=== PATIENT | male | born 1970 | race Caucasian/White ===

== ENCOUNTER 2017-11-19 18:07 | Emergency (ER) | payer OTHER ==
[~2017-11-19] VITALS: Ht 175.3 cm; Wt 84.0 kg
[~2017-11-19 18:07] MED LIST: DIAZ2 PO; HYDR-3535 PO; OMEP20CA5 PO
[2017-11-19 18:24] VITALS: BP 141/84; PULSE 87; RESP 18; TEMP 98.6; O2SAT 99
[2017-11-19 18:56] LABS: BLOOD, URINE LARGE (NEG); GLUCOSE,URINE NEG (NEG); KETONE, URINE NEG (NEG); NITRITE,URINE NEG (NEG); PH, URINE 5.5 (5.0-8.5); URINE LEUKOCYTE ESTERASE NEG (NEG)
[2017-11-19] MEDS ORDERED: SODIUM CHLOR 0.9% 1000 ML INJ 1,000 ML IV SCH (18:57)
[2017-11-19 18:58] LABS: URINE COLOR BROWN (YELLW/STRAW)
[2017-11-19 18:59] LABS: BILIRUBIN, URINE NEG (NEG)
[2017-11-19 19:00] VITALS: BP 132/85; PULSE 85; RESP 18; O2SAT 98
[2017-11-19] MEDS ORDERED: SODIUM CHLORIDE 0.9% FLUSH 10 ML FLUSH IV FLUSH PRN (19:00)
[2017-11-19] MEDS ORDERED: HYDROmorphone HCL PF 1 MG/ML VIAL IVS ONE (19:00)
[2017-11-19] MEDS ORDERED: ONDANSETRON ODT 4 MG TAB PO ONE (19:00)
[2017-11-19] MEDS ORDERED: KETOROLAC TROMETHAMINE 30 MG/ML (IVP) VIAL IVP ONE (19:00)
--- NOTE | 2017-11-19 19:04 | PD ---
HPI Chief Complaint: Flank/Kidney Pain Time Seen by Provider: 18:53 Travel History International Travel<30 days: No Contact w/Intl Traveler<30days: No Traveled to known affect area: No History of Present Illness HPI 47-year-old male complains of left flank pain. Patient states that the pain started last night. Patient states the pain is severe sharp pain started left flank area with radiation to left mid abdomen. Patient denies any fever chills. Patient denies any dysuria or frequency. Patient has history kidney stone in the past. On a scale of 1-10 the pain is a 9. PFSH Past Medical History Cancer: No Cardiovascular Problems: No Diabetes: No Diminished Hearing: No Endocrine: No Gastrointestinal Disorders: Yes (REFLUX) Genitourinary: Yes (KIDNEY STONES) Hepatitis: No Hiatal Hernia: No Immune Disorder: No Kidney Stones: Yes (HX) Musculoskeletal: Yes ("herniated and ruptured back discs and bulging discs in neck") Neurologic: Yes (R LEG TINGLE NUMBNESS) Respiratory: No Thyroid Disease: No Influenza Vaccination: Yes Past Surgical History AICD: No Body Medical Devices: NONE Joint Replacement: No Pacemaker: No Social History Alcohol Use: Yes (STATES OCCASIONAL USE) Tobacco Use: Yes (1 PPD) Substance Use: No Allergies-Medications (Allergen,Severity, Reaction): Coded Allergies: morphine (Unverified Adverse Reaction, Severe, VOMITS, 11/19/17) Reported Meds & Prescriptions Reported Meds & Active Scripts Active Review of Systems General / Constitutional: No: Fever Eyes: No: Visual changes HENT: No: Headaches Cardiovascular: No: Chest Pain or Discomfort Respiratory: No: Shortness of Breath Gastrointestinal: Positive: Abdominal Pain Genitourinary: No: Dysuria Musculoskeletal: No: Pain Skin: No Rash Neurologic: No: Weakness Psychiatric: No: Depression Endocrine: No: Polydipsia Hematologic/Lymphatic: No: Easy Bruising Physical Exam Narrative GENERAL: Well-nourished, well-developed patient. SKIN: Focused skin assessment warm/dry. HEAD: Normocephalic. EYES: No scleral icterus. No injection or drainage. NECK: Supple, trachea midline. No JVD or lymphadenopathy. CARDIOVASCULAR: Regular rate and rhythm without murmurs, gallops, or rubs. RESPIRATORY: Breath sounds equal bilaterally. No accessory muscle use. GASTROINTESTINAL: Abdomen soft, nondistended. Mild tenderness on palpation left mid abdomen. No rebound tenderness. No mass. MUSCULOSKELETAL: No cyanosis, or edema. BACK: Patient has moderate tenderness on palpation left flank area, without obvious deformity. No CVA tenderness. Neurologic exam normal. Data Data Last Documented VS Vital Signs Date Time Temp Pulse Resp B/P (MAP) Pulse Ox O2 Delivery O2 Flow Rate FiO2 11/19/17 20:17 81 18 142/74 (96) 99 Room Air 11/19/17 18:24 98.6 Orders Orders Urinalysis - C+S If Indicated (11/19/17 18:41) Basic Metabolic Panel (Bmp) (11/19/17 18:57) Complete Blood Count With Diff (11/19/17 18:57) Ct Abd/Pel W/O Iv Contrast (11/19/17 18:57) Iv Access Insert/Monitor (11/19/17 18:57) Ecg Monitoring (11/19/17 18:57) Oximetry (11/19/17 18:57) Sodium Chlor 0.9% 1000 Ml Inj (Ns 1000 M (11/19/17 18:57) Sodium Chloride 0.9% Flush (Ns Flush) (11/19/17 19:00) Ketorolac Inj (Toradol Inj) (11/19/17 19:00) Ondansetron Odt (Zofran Odt) (11/19/17 19:00) Urine Culture (11/19/17 18:40) Hydromorphone Pf Inj (Dilaudid Pf Inj) (11/19/17 19:15) Labs Laboratory Tests Test 11/19/17 18:40 11/19/17 19:12 Urine Color BROWN Urine Turbidity SL CLOUDY Urine pH 5.5 Urine Specific [place] 1.020 Urine Protein 30 mg/dL Urine Glucose (UA) NEG mg/dL Urine Ketones NEG mg/dL Urine Occult Blood LARGE Urine Nitrite NEG Urine Bilirubin NEG Urine Urobilinogen 0.2 MG/DL Urine Leukocyte Esterase NEG Urine RBC 100-200 /hpf Urine WBC 9-14 /hpf Urine Squamous Epithelial Cells 0-5 /hpf Microscopic Urinalysis Comment CULTURE INDICATED White Blood Count 10.0 TH/MM3 Red Blood Count 5.11 MIL/MM3 Hemoglobin 16.1 GM/DL Hematocrit 48.0 % Mean Corpuscular Volume 93.9 FL Mean Corpuscular Hemoglobin 31.6 PG Mean Corpuscular Hemoglobin Concent 33.7 % Red Cell Distribution Width 11.5 % Platelet Count 338 TH/MM3 Mean Platelet Volume 8.2 FL Neutrophils (%) (Auto) 67.4 % Lymphocytes (%) (Auto) 22.6 % Monocytes (%) (Auto) 6.4 % Eosinophils (%) (Auto) 1.8 % Basophils (%) (Auto) 1.8 % Neutrophils # (Auto) 6.7 TH/MM3 Lymphocytes # (Auto) 2.3 TH/MM3 Monocytes # (Auto) 0.6 TH/MM3 Eosinophils # (Auto) 0.2 TH/MM3 Basophils # (Auto) 0.2 TH/MM3 CBC Comment DIFF FINAL Differential Comment Blood Urea Nitrogen 15 MG/DL Creatinine 1.20 MG/DL Random Glucose 79 MG/DL Calcium Level 9.6 MG/DL Sodium Level 139 MEQ/L Potassium Level 3.8 MEQ/L Chloride Level 104 MEQ/L Carbon Dioxide Level 30.5 MEQ/L Anion Gap 5 MEQ/L Estimat Glomerular Filtration Rate 65 ML/MIN MDM Medical Decision Making Medical Screen Exam Complete: Yes Emergency Medical Condition: Yes Interpretation(s) Last Impressions Abdomen/Pelvis CT 11/19/17 0224 Signed Impressions: CONCLUSION: 1. 2 to 3 mm proximal left ureteral calculi with minimal hydronephrosis. 2. Multiple bilateral renal calculi. CBC within normal limits. BMP within normal limits. UA positive at RBC. Differential Diagnosis Differential diagnosis including nephrolithiasis, pyelonephritis, musculoskeletal, colitis. Narrative Course 47-year-old male with left flank pain. History of kidney stone. Normal saline solution 1 L IV bolus. Dilaudid 1 mg IV. Zofran 4 mg ODT. Toradol 30 mg IV. Patient does not want any prescription for pain medication to go home with. Diagnosis Primary Impression: Nephrolithiasis Patient Instructions: General Instructions Additional Instructions: Advised patient to follow-up with urologist. Advised patient return if intractable pain, fever, persistent vomiting. Med/Other Pt SpecificInfo: No Change to Meds Disposition: 01 DISCHARGE HOME Condition: Stable Nicholas Mchugh MD November 19, 2017 19:04
[2017-11-19 19:06] LABS: RBC, URINE 100-200 /hpf (0-3); SQUAMOUS EPITHELIAL CELL URINE 0-5 /hpf (0-5)
[2017-11-19] MEDS ORDERED: HYDROmorphone HCL PF 2 MG/ML VIAL IV PUSH ONE (19:15)
[2017-11-19 19:26] LABS: AUTOMATED NEUTROPHIL # 6.7 TH/MM3 (1.8-7.7); BASOPHIL # 0.2 TH/MM3 (0-0.2); BASOPHIL % 1.8 % (0.0-2.0); EOSINOPHIL # 0.2 TH/MM3 (0-0.4); EOSINOPHIL % 1.8 % (0.0-4.0); HEMOGLOBIN 16.1 GM/DL (13.0-17.0); LYMPH % 22.6 % (9.0-44.0); LYMPHOCYTE # 2.3 TH/MM3 (1.0-4.8); MEAN CELL VOLUME 93.9 FL (80.0-100.0); MEAN CORPUSCULAR HEMOGLOBIN 31.6 PG (27.0-34.0); MEAN CORPUSCULAR HGB CONC 33.7 % (32.0-36.0); MEAN PLATELET VOLUME 8.2 FL (7.0-11.0); MONO % 6.4 % (0.0-8.0); MONOCYTE # 0.6 TH/MM3 (0-0.9); NEUT % 67.4 % (16.0-70.0); PLATELET COUNT 338 TH/MM3 (150-450); RED BLOOD COUNT 5.11 MIL/MM3 (4.50-5.90); RED CELL DISTRIBUTION WIDTH 11.5 % (11.6-17.2)
[2017-11-19 19:37] LABS: CALCIUM 9.6 MG/DL (8.5-10.1)
[2017-11-19 19:38] LABS: BICARBONATE 30.5 MEQ/L (21.0-32.0)
[2017-11-19 19:41] LABS: CREATININE 1.2 MG/DL (0.60-1.30)
--- NOTE | 2017-11-19 20:09 | RADRPT ---
EXAM DATE: 11/19/2017 7:45 PM EDT AGE/SEX: 47 years / Male INDICATIONS: Left flank pain for one day, history of renal stones CLINICAL DATA: This is the patient's initial encounter. Patient reports that signs and symptoms have been present for 1 day and indicates a pain score of 6/10. MEDICAL/SURGICAL HISTORY: Renal calculi. Gastroesophageal reflux disease. . Lower back surgery RADIATION DOSE: 8.05 CTDI (mGy) COMPARISON: No prior [facility] exams available for comparison. TECHNIQUE: Multiple contiguous axial images were obtained through the abdomen. Images were obtained using multiple row detector helical technique. Using dose reduction techniques, radiation dose was ke pt as low as reasonably achievable to obtain optimal diagnostic quality images. FINDINGS: Lower Lungs: The visualized lower lungs are clear. Liver: The liver has a homogeneous density without space-occupying lesion. There is no dilation of th e biliary tree. The patient is status post cholecystectomy. Spleen: Homogeneous density without enlargement. Pancreas: Unremarkable without mass or calcification. Kidneys: The kidneys are normal in size and shape. There are multiple bilateral renal calculi. On th e right there is a large area of cortical calcification measuring up to 1.2 cm. There are at least 4 5 small 1 mm nonobstructing renal calculi as well as a simple cyst. There is no solid lesion. On the left there are approximately 8-10 tiny nonobstructing renal calculi. There is a proximal left uretera l calculi measuring approximately 2 to 3 mm in size. There is minimal hydronephrosis. This lies sever al centimeters below ureteral pelvic junction. Aorta: The aorta and proximal iliac vessels are grossly unremarkable without aneurysmal dilation. Bowel/Mesentery: The bowel loops are grossly unremarkable. The cecum and sigmoid colon have a normal configuration. There are multiple diverticuli greatest in the sigmoid colon. Abdominal Wall: Intact. Retroperitoneum: No evidence of adenopathy in the retrocrural, para-aortic, or deep pelvic regions. Bladder: Contours are smooth. Reproductive Organs: No abnormal masses or calcifications seen. Inguinal: The inguinal region is unremarkable without evidence of adenopathy. Bony Structures: Unremarkable. CONCLUSION: 1. 2 to 3 mm proximal left ureteral calculi with minimal hydronephrosis. 2. Multiple bilateral renal calculi. Electronically signed by: Lucius Wade MD 11/19/2017 8:07 PM EDT
[2017-11-19 20:17] VITALS: BP 142/74; PULSE 81; RESP 18; O2SAT 99
[2017-11-19 21:04] VITALS: BP 154/69
== END 2017-11-19 21:07 | disposition home or self-care (01) ==
LOC: PHED 18:07
DX: N13.2 Hydronephrosis with renal and ureteral calculous obstruction (principal); R10.9 Unspecified abdominal pain; Z87.442 Personal history of urinary calculi; Z72.0 Tobacco use
CPT/HCPCS: 74176; 80048; 81001; 85025; 87086; 96361; 96374; 96375; 99284; J1170; J1885; J7030

== ENCOUNTER 2017-11-20 12:29 | Emergency (ER) | payer OTHER ==
[~2017-11-20] VITALS: Ht 175.3 cm; Wt 86.3 kg
[2017-11-20 12:41] VITALS: BP 157/86; PULSE 81; RESP 18; TEMP 97.7; O2SAT 100
[2017-11-20 13:21] LABS: BILIRUBIN, URINE NEG (NEG); BLOOD, URINE LARGE (NEG); GLUCOSE,URINE NEG (NEG); KETONE, URINE NEG (NEG); NITRITE,URINE NEG (NEG); URINE COLOR YELLOW (YELLW/STRAW); URINE LEUKOCYTE ESTERASE NEG (NEG)
[2017-11-20 13:29] LABS: SQUAMOUS EPITHELIAL CELL URINE 0-5 /hpf (0-5)
[2017-11-20] MEDS ORDERED: SODIUM CHLOR 0.9% 1000 ML INJ 1,000 ML IV ONE ×2 (13:30→14:45)
[2017-11-20] MEDS ORDERED: ONDANSETRON HCL 4 MG/2 ML VIAL IV PUSH ONE (13:30)
[2017-11-20] MEDS ORDERED: HYDROmorphone HCL PF 2 MG/ML VIAL IV PUSH ONE ×2 (13:30→14:30)
[2017-11-20] MEDS ORDERED: KETOROLAC TROMETHAMINE 30 MG/ML (IVP) VIAL IV PUSH ONE (13:30)
--- NOTE | 2017-11-20 13:33 | PD ---
HPI Chief Complaint: Flank/Kidney Pain Time Seen by Provider: 13:19 Travel History International Travel<30 days: No Contact w/Intl Traveler<30days: No Traveled to known affect area: No History of Present Illness HPI This 47-year-old male is complaining of left flank pain. He has a history of kidney stones. He was a patient here yesterday and at that time had a CT scan which showed a 2-3 mm left proximal ureteral stone. He was given Dilaudid, Zofran and Toradol for pain. He did well yesterday but he is having pain again today. He has not had fever or chills. He has not been vomiting. PFSH Past Medical History Cancer: No Cardiovascular Problems: No Diabetes: No Diminished Hearing: No Endocrine: No Gastrointestinal Disorders: Yes (REFLUX) Genitourinary: Yes (KIDNEY STONES) Hepatitis: No Hiatal Hernia: No Immune Disorder: No Kidney Stones: Yes (HX) Musculoskeletal: Yes ("herniated and ruptured back discs and bulging discs in neck") Neurologic: Yes (R LEG TINGLE NUMBNESS) Respiratory: No Thyroid Disease: No Past Surgical History AICD: No Body Medical Devices: NONE Joint Replacement: No Pacemaker: No Social History Alcohol Use: Yes (STATES OCCASIONAL USE) Tobacco Use: Yes (1 PPD) Substance Use: No Allergies-Medications (Allergen,Severity, Reaction): Coded Allergies: Penicillins (Verified Allergy, Severe, Hives, 11/20/17) morphine (Unverified Adverse Reaction, Severe, VOMITS, 11/20/17) Reported Meds & Prescriptions Reported Meds & Active Scripts Active No Active Prescriptions or Reported Medications Review of Systems Except as stated in HPI: all other systems reviewed are Neg General / Constitutional: No: Fever, Chills Eyes: No: Diploplia HENT: No: Headaches Cardiovascular: No: Chest Pain or Discomfort, Palpitations Respiratory: No: Cough, Shortness of Breath Gastrointestinal: Positive: Nausea, No: Vomiting Genitourinary: Positive: Flank Pain Musculoskeletal: No: Myalgias, Arthralgias Skin: No Rash Neurologic: No: Weakness, Dizziness Endocrine: No: Heat Intolerance, Cold Intolerance Hematologic/Lymphatic: No: Easy Bruising Physical Exam Narrative GENERAL well-developed male SKIN: Focused skin assessment warm/dry. HEAD: Atraumatic. Normocephalic. EYES: Pupils equal and round. No scleral icterus. No injection or drainage. ENT: No nasal bleeding or discharge. Mucous membranes pink and moist. NECK: Trachea midline. No JVD. CARDIOVASCULAR: Regular rate and rhythm. No murmur appreciated. RESPIRATORY: No accessory muscle use. Clear to auscultation. Breath sounds equal bilaterally. GASTROINTESTINAL: Abdomen soft, non-tender, nondistended. Hepatic and splenic margins not palpable. There is some left CVA tenderness MUSCULOSKELETAL: No obvious deformities. No clubbing. No cyanosis. No edema. NEUROLOGICAL: Awake and alert. No obvious cranial nerve deficits. Motor grossly within normal limits. Normal speech. PSYCHIATRIC: Appropriate mood and affect; insight and judgment normal. Data Data Last Documented VS Vital Signs Date Time Temp Pulse Resp B/P (MAP) Pulse Ox O2 Delivery O2 Flow Rate FiO2 11/20/17 12:41 97.7 81 18 157/86 (109) 100 Orders Orders Urinalysis - C+S If Indicated (11/20/17 12:50) Complete Blood Count With Diff (11/20/17 13:23) Basic Metabolic Panel (Bmp) (11/20/17 13:23) Sodium Chlor 0.9% 1000 Ml Inj (Ns 1000 M (11/20/17 13:30) Ondansetron Inj (Zofran Inj) (11/20/17 13:30) Ketorolac Inj (Toradol Inj) (11/20/17 13:30) Hydromorphone Pf Inj (Dilaudid Pf Inj) (11/20/17 13:30) Hydromorphone Pf Inj (Dilaudid Pf Inj) (11/20/17 14:30) Labs Laboratory Tests Test 11/20/17 13:15 11/20/17 13:40 Urine Collection Type CLEAN CATCH Urine Color YELLOW Urine Turbidity SL CLOUDY Urine pH 7.0 Urine Specific [place] 1.015 Urine Protein NEG mg/dL Urine Glucose (UA) NEG mg/dL Urine Ketones NEG mg/dL Urine Occult Blood LARGE Urine Nitrite NEG Urine Bilirubin NEG Urine Urobilinogen 0.2 MG/DL Urine Leukocyte Esterase NEG Urine RBC 25-49 /hpf Urine Squamous Epithelial Cells 0-5 /hpf Microscopic Urinalysis Comment CULT NOT INDICATED Urine Collection Time 1315 White Blood Count 12.7 TH/MM3 Red Blood Count 4.62 MIL/MM3 Hemoglobin 14.6 GM/DL Hematocrit 43.2 % Mean Corpuscular Volume 93.5 FL Mean Corpuscular Hemoglobin 31.7 PG Mean Corpuscular Hemoglobin Concent 33.9 % Red Cell Distribution Width 12.2 % Platelet Count 289 TH/MM3 Mean Platelet Volume 7.5 FL Neutrophils (%) (Auto) 74.5 % Lymphocytes (%) (Auto) 15.3 % Monocytes (%) (Auto) 5.2 % Eosinophils (%) (Auto) 1.3 % Basophils (%) (Auto) 3.7 % Neutrophils # (Auto) 9.4 TH/MM3 Lymphocytes # (Auto) 1.9 TH/MM3 Monocytes # (Auto) 0.7 TH/MM3 Eosinophils # (Auto) 0.2 TH/MM3 Basophils # (Auto) 0.5 TH/MM3 CBC Comment DIFF FINAL Differential Comment Blood Urea Nitrogen 20 MG/DL Creatinine 1.50 MG/DL Random Glucose 84 MG/DL Calcium Level 9.2 MG/DL Sodium Level 137 MEQ/L Potassium Level 4.1 MEQ/L Chloride Level 105 MEQ/L Carbon Dioxide Level 26.4 MEQ/L Anion Gap 6 MEQ/L Estimat Glomerular Filtration Rate 51 ML/MIN MDM Medical Decision Making Medical Screen Exam Complete: Yes Emergency Medical Condition: Yes Medical Record Reviewed: Yes Differential Diagnosis Differential includes renal colic, intractable pain Narrative Course Patient has been given IV fluids and pain meds with improvement in his symptoms. Urine shows red cells but no white cells. Diagnosis Primary Impression: Renal colic on left side Additional Instructions: Take ibuprofen 600 mg every 6 hours if needed for pain, take it with meals. You can take this in addition to your hydrocodone Scripts No Active Prescriptions or Reported Meds Disposition: 01 DISCHARGE HOME Condition: Stable Hugh Mackay MD November 20, 2017 13:33
[2017-11-20 13:46] LABS: AUTOMATED NEUTROPHIL # 9.4 TH/MM3 (1.8-7.7); BASOPHIL # 0.5 TH/MM3 (0-0.2); BASOPHIL % 3.7 % (0.0-2.0); EOSINOPHIL # 0.2 TH/MM3 (0-0.4); EOSINOPHIL % 1.3 % (0.0-4.0); HEMATOCRIT 43.2 % (39.0-51.0); HEMOGLOBIN 14.6 GM/DL (13.0-17.0); LYMPH % 15.3 % (9.0-44.0); LYMPHOCYTE # 1.9 TH/MM3 (1.0-4.8); MEAN CELL VOLUME 93.5 FL (80.0-100.0); MEAN CORPUSCULAR HEMOGLOBIN 31.7 PG (27.0-34.0); MEAN CORPUSCULAR HGB CONC 33.9 % (32.0-36.0); MEAN PLATELET VOLUME 7.5 FL (7.0-11.0); MONO % 5.2 % (0.0-8.0); MONOCYTE # 0.7 TH/MM3 (0-0.9); NEUT % 74.5 % (16.0-70.0); PLATELET COUNT 289 TH/MM3 (150-450); RED BLOOD COUNT 4.62 MIL/MM3 (4.50-5.90); RED CELL DISTRIBUTION WIDTH 12.2 % (11.6-17.2); WHITE BLOOD COUNT 12.7 TH/MM3 (4.0-11.0)
[2017-11-20 13:55] LABS: CALCIUM 9.2 MG/DL (8.5-10.1)
[2017-11-20 13:56] LABS: BICARBONATE 26.4 MEQ/L (21.0-32.0)
[2017-11-20 13:59] LABS: CREATININE 1.5 MG/DL (0.60-1.30)
[2017-11-20 14:37] VITALS: BP 131/92; PULSE 80; RESP 16; O2SAT 97
== END 2017-11-20 15:25 | disposition home or self-care (01) ==
LOC: PHED 12:29
DX: N23 Unspecified renal colic (principal); K21.9 Gastro-esophageal reflux disease without esophagitis; Z87.442 Personal history of urinary calculi; F17.200 Nicotine dependence, unspecified, uncomplicated
CPT/HCPCS: 80048; 81001; 85025; 96361; 96374; 96375; 96376; 99284; J1170; J1885; J2405; J7030

== ENCOUNTER 2017-11-21 06:18 | Observation (INO) | payer OTHER ==
[~2017-11-21] VITALS: Ht 175.3 cm; Wt 86.5 kg
[2017-11-21 06:22] VITALS: BP 173/87; PULSE 88; TEMP 98; O2SAT 98
--- NOTE | 2017-11-21 07:13 | PD ---
HPI Chief Complaint: Flank/Kidney Pain Time Seen by Provider: 06:55 Travel History International Travel<30 days: No Contact w/Intl Traveler<30days: No Traveled to known affect area: No History of Present Illness HPI 47-year-old male complains of left flank pain. Patient was seen in emergency room [address] showed 2- 3 mm left nephrolithiasis. Patient was given IV fluids and pain medication discharge. Patient returned yesterday with exacerbation of left flank pain. Patient was given IV fluid and pain medication and discharged. Patient states that he tried to contact his urologist Dr. Bingham without success. Patient returned today with increasing left flank pain and nausea. Patient denies any fever chills. Patient stated pain is sharp pain and started on the left flank area with radiation to left side abdomen. Patient denies any dysuria or frequency. On a scale of 1-10 the pain is a 10. PFSH Past Medical History Cancer: No Cardiovascular Problems: No Diabetes: No Diminished Hearing: No Endocrine: No Gastrointestinal Disorders: Yes (REFLUX) GERD: Yes Genitourinary: Yes (KIDNEY STONES) Hepatitis: No Hiatal Hernia: No Immune Disorder: No Kidney Stones: Yes (HX) Musculoskeletal: Yes ("herniated and ruptured back discs and bulging discs in neck") Neurologic: Yes (R LEG TINGLE NUMBNESS) Respiratory: No Thyroid Disease: No Tetanus Vaccination: < 5 Years Influenza Vaccination: Yes Past Surgical History AICD: No Body Medical Devices: NONE Joint Replacement: No Pacemaker: No Social History Alcohol Use: Yes (STATES OCCASIONAL USE) Tobacco Use: Yes (1 PPD) Substance Use: No Allergies-Medications (Allergen,Severity, Reaction): Coded Allergies: Penicillins (Verified Allergy, Severe, Hives, 11/21/17) morphine (Unverified Adverse Reaction, Severe, VOMITS, 11/21/17) Reported Meds & Prescriptions Reported Meds & Active Scripts Active No Active Prescriptions or Reported Medications Review of Systems General / Constitutional: No: Fever Eyes: No: Visual changes HENT: No: Headaches Cardiovascular: No: Chest Pain or Discomfort Respiratory: No: Shortness of Breath Gastrointestinal: No: Abdominal Pain Genitourinary: No: Dysuria Musculoskeletal: No: Pain Skin: No Rash Neurologic: No: Weakness Psychiatric: No: Depression Endocrine: No: Polydipsia Hematologic/Lymphatic: No: Easy Bruising Physical Exam Narrative GENERAL: Well-nourished, well-developed patient. SKIN: Focused skin assessment warm/dry. HEAD: Normocephalic. EYES: No scleral icterus. No injection or drainage. NECK: Supple, trachea midline. No JVD or lymphadenopathy. CARDIOVASCULAR: Regular rate and rhythm without murmurs, gallops, or rubs. RESPIRATORY: Breath sounds equal bilaterally. No accessory muscle use. GASTROINTESTINAL: Abdomen soft, non-tender, nondistended. MUSCULOSKELETAL: No cyanosis, or edema. BACK: Patient has moderate tenderness to palpation left flank area, without obvious deformity. No CVA tenderness. Neurologic exam normal. Data Data Last Documented VS Vital Signs Date Time Temp Pulse Resp B/P (MAP) Pulse Ox O2 Delivery O2 Flow Rate FiO2 11/21/17 07:15 97.6 87 18 119/100 (106) 100 Room Air Orders Orders Complete Blood Count With Diff (11/21/17 06:59) Basic Metabolic Panel (Bmp) (11/21/17 06:59) Urinalysis - C+S If Indicated (11/21/17 06:59) Ct Abd/Pel W/O Iv Contrast (11/21/17 07:04) Sodium Chlor 0.9% 1000 Ml Inj (Ns 1000 M (11/21/17 07:15) Hydromorphone Pf Inj (Dilaudid Pf Inj) (11/21/17 07:15) Ondansetron Odt (Zofran Odt) (11/21/17 07:15) Ketorolac Inj (Toradol Inj) (11/21/17 08:15) Diphenhydramine Inj (Benadryl Inj) (11/21/17 08:15) Tamsulosin (Flomax) (11/21/17 08:15) Labs Laboratory Tests Test 11/21/17 07:00 White Blood Count 12.9 TH/MM3 Red Blood Count 4.55 MIL/MM3 Hemoglobin 14.5 GM/DL Hematocrit 42.9 % Mean Corpuscular Volume 94.4 FL Mean Corpuscular Hemoglobin 31.9 PG Mean Corpuscular Hemoglobin Concent 33.8 % Red Cell Distribution Width 12.1 % Platelet Count 275 TH/MM3 Mean Platelet Volume 8.4 FL Neutrophils (%) (Auto) 78.5 % Lymphocytes (%) (Auto) 13.2 % Monocytes (%) (Auto) 6.3 % Eosinophils (%) (Auto) 1.2 % Basophils (%) (Auto) 0.8 % Neutrophils # (Auto) 10.1 TH/MM3 Lymphocytes # (Auto) 1.7 TH/MM3 Monocytes # (Auto) 0.8 TH/MM3 Eosinophils # (Auto) 0.2 TH/MM3 Basophils # (Auto) 0.1 TH/MM3 CBC Comment DIFF FINAL Differential Comment Urine Collection Type VOIDED Urine Color STRAW Urine Turbidity CLEAR Urine pH 6.0 Urine Specific [place] LESS/EQUAL 1.005 Urine Protein NEG mg/dL Urine Glucose (UA) NEG mg/dL Urine Ketones NEG mg/dL Urine Occult Blood SMALL Urine Nitrite NEG Urine Bilirubin NEG Urine Urobilinogen 0.2 MG/DL Urine Leukocyte Esterase NEG Urine RBC 0-3 /hpf Microscopic Urinalysis Comment CULT NOT INDICATED Blood Urea Nitrogen 21 MG/DL Creatinine 1.90 MG/DL Random Glucose 99 MG/DL Calcium Level 9.4 MG/DL Sodium Level 139 MEQ/L Potassium Level 4.2 MEQ/L Chloride Level 106 MEQ/L Carbon Dioxide Level 23.9 MEQ/L Anion Gap 9 MEQ/L Estimat Glomerular Filtration Rate 39 ML/MIN [facility] Medical Decision Making Medical Screen Exam Complete: Yes Emergency Medical Condition: Yes Interpretation(s) Last Impressions Abdomen/Pelvis CT 11/21/17 0704 Signed Impressions: CONCLUSION: 1. The previously noted 3 mm left proximal ureteral calculus is now positioned at the left UVJ just inside the urinary bladder. There continues to be some mi ld hydronephrosis of the left collecting system. 2. No change in the bilateral multiple nonobstructing renal calculi. 8:15 AM. CBC WBC 12.9. 78 neutrophil. BUN 21. Creatinine 1.9. GFR 39. Differential Diagnosis Differential diagnosis including nephrolithiasis, pyelonephritis. Narrative Course 47-year-old male with left flank pain/abdominal pain. History kidney stone. Normal saline solution 1 L IV bolus. Dilaudid 1 mg IV. Zofran 4 mg OTC. Toradol 30 mg IV. Flomax 0.4 mg p.o. Benadryl 25 mg IV. Diagnosis Primary Impression: Nephrolithiasis Additional Impressions: Intractable pain Acute kidney injury Admitting Information Admitting Physician Requests: Observation Scripts No Active Prescriptions or Reported Meds Nicholas Mchugh MD November 21, 2017 07:13
[2017-11-21 07:15] VITALS: BP 119/100; PULSE 87; RESP 18; TEMP 97.6; O2SAT 100
[2017-11-21] MEDS ORDERED: HYDROmorphone HCL PF 2 MG/ML VIAL IV PUSH ONE (07:15)
[2017-11-21] MEDS ORDERED: SODIUM CHLOR 0.9% 1000 ML INJ 1,000 ML IV ONE (07:15)
[2017-11-21] MEDS ORDERED: ONDANSETRON ODT 4 MG TAB PO ONE (07:15)
[2017-11-21 07:20] LABS: BILIRUBIN, URINE NEG (NEG); BLOOD, URINE SMALL (NEG); GLUCOSE,URINE NEG (NEG); KETONE, URINE NEG (NEG); NITRITE,URINE NEG (NEG); URINE LEUKOCYTE ESTERASE NEG (NEG)
[2017-11-21 07:24] LABS: URINE COLOR STRAW (YELLW/STRAW)
[2017-11-21 07:38] LABS: BICARBONATE 23.9 MEQ/L (21.0-32.0); CALCIUM 9.4 MG/DL (8.5-10.1)
[2017-11-21 07:41] LABS: CREATININE 1.9 MG/DL (0.60-1.30)
[2017-11-21 07:45] LABS: AUTOMATED NEUTROPHIL # 10.1 TH/MM3 (1.8-7.7); BASOPHIL # 0.1 TH/MM3 (0-0.2); BASOPHIL % 0.8 % (0.0-2.0); EOSINOPHIL # 0.2 TH/MM3 (0-0.4); EOSINOPHIL % 1.2 % (0.0-4.0); HEMATOCRIT 42.9 % (39.0-51.0); HEMOGLOBIN 14.5 GM/DL (13.0-17.0); LYMPH % 13.2 % (9.0-44.0); LYMPHOCYTE # 1.7 TH/MM3 (1.0-4.8); MEAN CELL VOLUME 94.4 FL (80.0-100.0); MEAN CORPUSCULAR HEMOGLOBIN 31.9 PG (27.0-34.0); MEAN CORPUSCULAR HGB CONC 33.8 % (32.0-36.0); MEAN PLATELET VOLUME 8.4 FL (7.0-11.0); MONO % 6.3 % (0.0-8.0); MONOCYTE # 0.8 TH/MM3 (0-0.9); NEUT % 78.5 % (16.0-70.0); PLATELET COUNT 275 TH/MM3 (150-450); RED BLOOD COUNT 4.55 MIL/MM3 (4.50-5.90); RED CELL DISTRIBUTION WIDTH 12.1 % (11.6-17.2); WHITE BLOOD COUNT 12.9 TH/MM3 (4.0-11.0)
--- NOTE | 2017-11-21 07:55 | RADRPT ---
EXAM DATE: 11/21/2017 7:46 AM EDT AGE/SEX: 47 years / Male INDICATIONS: Left flank pain for two days. CLINICAL DATA: This is the patient's sequela encounter. Patient reports that signs and symptoms have been present for 2 days and indicates a pain score of 10/10. MEDICAL/SURGICAL HISTORY: Renal calculi. Gastroesophageal reflux disease. None. RADIATION DOSE: 8.3 CTDI (mGy) COMPARISON: [facility], CT ABDOMEN & PELVIS W/O CONTRAST, 11/19/2017. . TECHNIQUE: Multiple contiguous axial images were obtained through the abdomen. Images were obtained using multiple row detector helical technique. Using dose reduction techniques, radiation dose was ke pt as low as reasonably achievable to obtain optimal diagnostic quality images. FINDINGS: Lower Lungs: The visualized lower lungs are clear. Liver: The liver has a homogeneous density without space-occupying lesion. There is no dilation of th e biliary tree. Spleen: Homogeneous density without enlargement. Pancreas: Unremarkable without mass or calcification. Kidneys: Normal in size and shape. . There has been no significant change with the bilateral renal c alculi. There is no hydronephrosis of the right collecting system. There is some mild hydronephrosis of the left collecting system. The previously noted 3 mm stone in the proximal left ureter is now at the level of the left UVJ just inside the urinary bladder. Stable 1.2 cm benign-appearing right renal cyst. Adrenal Glands: Unremarkable. Aorta: The aorta and proximal iliac vessels are grossly unremarkable without aneurysmal dilation. Bowel/Mesentery: The bowel loops are grossly unremarkable. The cecum and sigmoid colon have a normal configuration. Scattered diverticulosis of the sigmoid colon without inflammatory changes. Abdominal Wall: Intact. Retroperitoneum: No evidence of adenopathy in the retrocrural, para-aortic, or deep pelvic regions. Bladder: Contours are smooth. Reproductive Organs: No abnormal masses or calcifications seen. Inguinal: The inguinal region is unremarkable without evidence of adenopathy. Bony Structures: Stable mild degenerative changes. CONCLUSION: 1. The previously noted 3 mm left proximal ureteral calculus is now positioned at the left UVJ just inside the urinary bladder. There continues to be some mild hydronephrosis of the left collecting sys tem. 2. No change in the bilateral multiple nonobstructing renal calculi. Electronically signed by: Omari Loyola MD 11/21/2017 7:53 AM EDT
[2017-11-21 08:04] LABS: RBC, URINE 0-3 /hpf (0-3)
[2017-11-21] MEDS ORDERED: TAMSULOSIN HCL 0.4 MG CAP PO ONE (08:15)
[2017-11-21] MEDS ORDERED: KETOROLAC TROMETHAMINE 30 MG/ML (IVP) VIAL IV PUSH ONE (08:15)
[2017-11-21] MEDS ORDERED: diphenhydrAMINE HCL 50 MG/ML VIAL IV PUSH ONE (08:15)
[2017-11-21] MEDS ORDERED: KETOROLAC TROMETHAMINE 30 MG/ML (IVP) VIAL IV PUSH PRN (08:45)
[2017-11-21] MEDS ORDERED: SODIUM CHLORIDE 0.9% FLUSH 10 ML FLUSH IV FLUSH PRN (08:45)
[2017-11-21] MEDS ORDERED: ONDANSETRON HCL 4 MG/2 ML VIAL IV PUSH PRN (08:45)
[2017-11-21] MEDS: DEXT 5%-NACL 0.45% 1000 ML INJ 1,000 ML IV SCH ×3 (08:49→22:01)
[2017-11-21 08:51] VITALS: BP 148/66; PULSE 77; RESP 16; O2SAT 96
[2017-11-21] MEDS: SODIUM CHLORIDE 0.9% FLUSH 10 ML FLUSH IV FLUSH SCH ×2 (08:53→19:42)
--- NOTE | 2017-11-21 11:33 | HHI.HP ---
[facility] Primary Care Physician Non-Staff Admission Diagnosis Nephrolithiasis. Intractable pain. Acute kidney injury. Diagnoses: (1) Acute kidney injury (2) Nephrolithiasis Chief Complaint: Intractable pain Travel History International Travel<30 Days: No Contact w/Intl Traveler <30 Da: No Traveled to Known Affected Are: No History of Present Illness Written by Bruce Cesar, acting as scribe for Dr. Paez on 11/21/17 at 11: 33. 47-year-old male with no chronic medical history who presented the hospital 3 days in a row because of left abdominal flank pain. Patient was originally diagnosed in the ER with renal lithiasis on the left side with CT scan indicating a 2-3 mm proximal left ureteral calculi with minimal hydronephrosis. Patient was at home for outpatient treatment with recommendations to increase fluid intake and ibuprofen for pain control. Patient indicates that he could not tolerate the pain anymore so he continued to come back to the emergency department. Patient had repeat CT scan done which does show appropriate progression of the kidney stone which is now at the UVJ junction in the bladder. However the patient states that the pain is unbearable and laboratory studies show continued worsening of his renal functions. It was recommended by the ER physician that the patient should observed in the hospital with IV fluids and monitor renal function. Patient denies any fever, chills, states that he does get left flank pain and left abdomen pain. Denies any hematuria. Review of Systems Gastrointestinal: COMPLAINS OF: Abdominal pain Except as stated in HPI: all other systems reviewed are Neg Past Family Social History Past Medical History History of back injury Past Surgical History Lumbar spine surgery Reported Medications Prilosec Allergies: Coded Allergies: Penicillins (Verified Allergy, Severe, Hives, 11/21/17) morphine (Unverified Adverse Reaction, Severe, VOMITS, 11/21/17) Family History Family history reviewed and patient denies any history of heart disease, lung disease, diabetes, cancer, seizure, stroke Social History Patient smokes half a pack of cigarettes a day since his mid 20s. Uses alcohol occasionally. Denies any illicit drug Physical Exam Vital Signs Vital Signs Date Time Temp Pulse Resp B/P (MAP) Pulse Ox O2 Delivery O2 Flow Rate FiO2 11/21/17 10:00 11/21/17 08:51 77 16 148/66 (93) 96 Room Air 11/21/17 07:15 97.6 87 18 119/100 (106) 100 Room Air 11/21/17 06:22 98.0 88 173/87 (115) 98 Physical Exam GENERAL: Well-developed, well-nourished, in no acute distress. alert and orientated HEENT: Head is normocephalic without any lesions or masses noted. Facial features are symmetric. Eyes: Pupils equal round reactive to light. Extraocular muscles are intact. Conjunctivae were clear. Oropharyngeal: Pharynx without any erythema edema. Tongue is midline without deviation. Buccal mucosa is moist without any masses or lesions NECK: Supple without any masses. Trachea midline no deviation. No JVD, no bruits are appreciated CARDIAC: Regular rhythm, regular rate. S1/S2 are heard. No murmurs gallops or rubs. LUNGS: Clear to auscultation bilaterally. No wheeze, rhonchi or rales. No use of accessory muscles on inspiration or expiration. ABDOMEN: Soft, nontender. Nondistended. Bowel sounds heard in all 4 quadrants. No organomegaly or masses. Negative rebound, negative guarding EXTREMITIES: No edema, pulses are equal bilaterally. No cyanosis or clubbing NEUROLOGY: Mood and affect appear appropriate. Cranial nerves II through XII grossly intact. Muscle strength 5/5 in upper and lower extremities bilaterally. Deep tendon reflexes are 2+ in upper and lower extremities bilaterally. Laboratory Laboratory Tests Test 11/21/17 07:00 White Blood Count 12.9 Red Blood Count 4.55 Hemoglobin 14.5 Hematocrit 42.9 Mean Corpuscular Volume 94.4 Mean Corpuscular Hemoglobin 31.9 Mean Corpuscular Hemoglobin Concent 33.8 Red Cell Distribution Width 12.1 Platelet Count 275 Mean Platelet Volume 8.4 Neutrophils (%) (Auto) 78.5 Lymphocytes (%) (Auto) 13.2 Monocytes (%) (Auto) 6.3 Eosinophils (%) (Auto) 1.2 Basophils (%) (Auto) 0.8 Neutrophils # (Auto) 10.1 Lymphocytes # (Auto) 1.7 Monocytes # (Auto) 0.8 Eosinophils # (Auto) 0.2 Basophils # (Auto) 0.1 CBC Comment DIFF FINAL Differential Comment Urine Collection Type VOIDED Urine Color STRAW Urine Turbidity CLEAR Urine pH 6.0 Urine Specific [place] LESS/EQUAL 1.005 Urine Protein NEG Urine Glucose (UA) NEG Urine Ketones NEG Urine Occult Blood SMALL Urine Nitrite NEG Urine Bilirubin NEG Urine Urobilinogen 0.2 Urine Leukocyte Esterase NEG Urine RBC 0-3 Microscopic Urinalysis Comment CULT NOT INDICATED Blood Urea Nitrogen 21 Creatinine 1.90 Random Glucose 99 Calcium Level 9.4 Sodium Level 139 Potassium Level 4.2 Chloride Level 106 Carbon Dioxide Level 23.9 Anion Gap 9 Estimat Glomerular Filtration Rate 39 Result Diagram: 11/21/1769911/21/17699 Imaging Last Impressions Abdomen/Pelvis CT 11/21/17 07 Signed Impressions: CONCLUSION: 1. The previously noted 3 mm left proximal ureteral calculus is now positioned at the left UVJ just inside the urinary bladder. There continues to be some mi ld hydronephrosis of the left collecting system. 2. No change in the bilateral multiple nonobstructing renal calculi. Caprini VTE Risk Assessment Caprini VTE Risk Assessment: No/Low Risk (score <= 1) Caprini Risk Assessment Model Point Value = 1 Point Value = 2 Point Value = 3 Point Value = 5 Age 41-60 Minor surgery BMI > 25 kg/m2 Swollen legs Varicose veins or History of unexplained or recurrent spontaneous Oral contraceptives or hormone replacement Sepsis (< 1 month) Serious lung disease, including pneumonia (< 1 month) Abnormal pulmonary function Acute myocardial infarction Congestive heart failure (< 1 month) History of inflammatory bowel disease Medical patient at bed rest Age 61-74 Arthroscopic surgery Major open surgery (> 45 min) Laparoscopic surgery (> 45 min) Malignancy Confined to bed (> 72 hours) Immobilizing plaster cast Central venous access Age >= 75 History of VTE Family history of VTE Factor V Leiden Prothrombin [id number] Lupus anticoagulant Anticardiolipin antibodies Elevated serum homocysteine Heparin-induced thrombocytopenia Other congenital or acquired thrombophilia Stroke (< 1 month) Elective arthroplasty Hip, pelvis, or leg fracture Acute spinal cord injury (< 1 month) Prophylaxis Regimen Total Risk Factor Score Risk Level Prophylaxis Regimen 0-1 Low Early ambulation 2 Moderate Order ONE of the following: *Sequential Compression Device (SCD) *Heparin 5000 units SQ BID 3-4 Higher Order ONE of the following medications: *Heparin 5000 units SQ TID *Enoxaparin/Lovenox 40 mg SQ daily (WT < 150 kg, CrCl > 30 mL/min) *Enoxaparin/Lovenox 30 mg SQ daily (WT < 150 kg, CrCl > 10-29 mL/min) *Enoxaparin/Lovenox 30 mg SQ BID (WT < 150 kg, CrCl > 30 mL/min) AND/OR *Sequential Compression Device (SCD) 5 or more Highest Order ONE of the following medications: *Heparin 5000 units SQ TID (Preferred with Epidurals) *Enoxaparin/Lovenox 40 mg SQ daily (WT < 150 kg, CrCl > 30 mL/min) *Enoxaparin/Lovenox 30 mg SQ daily (WT < 150 kg, CrCl > 10-29 mL/min) *Enoxaparin/Lovenox 30 mg SQ BID (WT < 150 kg, CrCl > 30 mL/min) AND *Sequential Compression Device (SCD) Assessment and Plan Problem List: (1) Nephrolithiasis ICD Code: N20.0 - Calculus of kidney Status: Acute (2) Intractable pain ICD Code: R52 - Pain, unspecified Status: Acute (3) Acute kidney injury ICD Code: N17.9 - Acute kidney failure, unspecified Status: Acute Assessment and Plan 47-year-old male who presented to the hospital 3 days in a row because of continued pain from nephrolithiasis Renal lithiasis -CT scan does indicate that the ureteral calculus is moving down the collecting system and is now located at the left UVJ just inside the urinary bladder -Continue pain control with Toradol -Strain all urine -ER physician consulted urologist Acute kidney injury -Secondary to obstructive uropathy from renal lithiasis -Continue IV fluids -Monitor renal function DVT prevention -Low risk, early ambulation This note was transcribed by philip Cesar. I, Dr. Yonathan Paez personally performed the history, physical exam, and medical decision making; and confirmed the accuracy of the information in the transcribed note. Authenticated by Dr. Yonathan Paez on 11/21/17 at 11:33. Code Status Full code Discussed Condition With Patient, ED physician Bruce Cesar November 21, 2017 11:33 Yonathan Paez MD November 21, 2017 11:34
[2017-11-21 12:00] VITALS: BP 130/67; PULSE 76; RESP 15; TEMP 98.3; O2SAT 97
--- NOTE | 2017-11-21 13:09 | MB ---
cc: Brian Younger MD DATE: 11/21/2017 REASON FOR CONSULTATION: 1. Left 3 mm UVJ stone with mild hydronephrosis. 2. Bilateral nonobstructing renal calculi. HISTORY OF PRESENT ILLNESS: This patient is a 47-year-old male with a history of kidney stones, who presented to the hospital each of the last 3 days with left flank pain radiating to his left groin. He originally came here 3 days ago to the ER with the left flank pain. A CT scan at that time showed a 3 mm proximal left ureteral calculus with mild hydronephrosis as well as bilateral kidney stones. The patient was sent home on conservative therapy and told to followup with a urologist; however, his pain continued to worsen over each of the next few days to the point where he came back to the emergency department today with left lower quadrant pain extending across his abdomen. A repeat CT stone protocol was done in the ER, which showed the stone had migrated almost to his bladder. However, his creatinine had worsened from 1.2 to 1.9. Therefore, he was admitted for pain control and Urology was consulted. The patient has double kidney stones throughout the years in which he has passed on his own. He saw a urologist a few years ago, but did not have any thorough metabolic workup. He denies fever, chills, nausea, vomiting, hematuria or dysuria at this time. He denies any other urinary tract symptoms. He denies any history of urinary tract infections or family history of prostate cancer. REVIEW OF SYSTEMS: See HPI. Otherwise all systems reviewed otherwise are negative. PAST MEDICAL HISTORY: Significant for kidney stones. PAST SURGICAL HISTORY: Status post back surgery and circumcision. HOME MEDICATIONS: Prilosec. ALLERGIES: PENICILLIN AND MORPHINE. FAMILY HISTORY: Denies urolithiasis or genitourinary malignancies. SOCIAL HISTORY: He smokes 1/2 pack of cigarettes per day since his mid 20s. Uses alcohol occasionally. Denies illicit drugs. Lives with his girlfriend. PHYSICAL EXAMINATION: VITAL SIGNS: Temperature 97.6, pulse 77, respirations 16, BP 140/60, saturating 96% on room air. GENERAL: He is alert and oriented x 3, no apparent distress, pleasant and cooperative gentleman, appears his stated age. HEENT: Head is normocephalic, atraumatic. Eyes: No scleral icterus. Extraocular muscles intact. NECK: Supple. Trachea is midline. No JVD. LUNGS: Clear to auscultation bilaterally. No wheezes, rales, or rhonchi. HEART: Regular rate and rhythm. No murmurs, gallops, or rubs. ABDOMEN: Soft, nontender, nondistended, positive bowel sounds. GENITOURINARY: He has no CVA tenderness bilaterally. His penis is circumcised. Testes were descended bilaterally normal size and consistency, without mass. EXTREMITIES: Nontender. No clubbing, cyanosis or edema. NEUROLOGIC: Cranial nerves 2-12 intact. Strength 5/5 of all 4 extremities. SKIN: No ulcers or rashes. Mucous membranes pink and moist. PSYCHIATRIC: Normal affect. Answers questions appropriately. LABORATORY DATA: Shows a white count 12.9, hemoglobin 14.5, hematocrit 42.9, platelet count 275. Sodium 139, potassium 4. __, chloride 106, bicarbonate 23.9, BUN 21, creatinine 1.90, glucose 99. His urine was completely negative. IMAGING STUDIES: CT abdomen and pelvis without contrast images reviewed and agreed with radiologist's report. The patient has a 3 mm stone almost in his bladder at his left UVJ as well as bilateral nonobstructing stones. ASSESSMENT: The patient is a 47-year-old male with a history of kidney stones who presents with intractable left flank pain secondary to a 3 mm left ureterovesical junction stone with mild hydronephrosis. PLAN: Recommend conservative management as he has likely will pass this stone. Recommend Flomax, IV fluids and strain all of his urine. As long as he does well overnight, he can be discharged in the morning. He can follow up as an outpatient. We will go ahead and check his serum parathyroid hormone, calcium level and vitamin D while he is here. Thank you for this consult. Please call with any questions. Brian Younger MD EMVivian/IVONNE , 12:44 PM , 01:08 PM
[2017-11-21 13:18] LABS: CALCIUM 8.7 MG/DL (8.5-10.1)
[2017-11-21] MEDS: KETOROLAC TROMETHAMINE 30 MG/ML (IVP) VIAL IV PUSH PRN ×2 (15:38→22:01)
[2017-11-21 16:00] VITALS: BP 125/77; PULSE 78; RESP 17; TEMP 99.7; O2SAT 96
[2017-11-21] MEDS ORDERED: ACETAMINOPHEN 325 MG TAB PO PRN (18:15)
[2017-11-21 20:00] VITALS: BP 127/73; PULSE 69; RESP 20; TEMP 98.8; O2SAT 97
[2017-11-21] MEDS ORDERED: TAMSULOSIN HCL 0.4 MG CAP PO SCH (21:00)
[2017-11-22] VITALS: BP 130/78; PULSE 62; RESP 20; TEMP 97.6; O2SAT 98
[2017-11-22] MEDS: DEXT 5%-NACL 0.45% 1000 ML INJ 1,000 ML IV SCH (05:13)
[2017-11-22] MEDS: KETOROLAC TROMETHAMINE 30 MG/ML (IVP) VIAL IV PUSH PRN (05:14)
[2017-11-22] MEDS ORDERED: OMEP20TA93 PO (05:17)
[2017-11-22 07:12] LABS: BICARBONATE 26.4 MEQ/L (21.0-32.0); CALCIUM 8.3 MG/DL (8.5-10.1)
[2017-11-22 07:16] LABS: CREATININE 1.5 MG/DL (0.60-1.30)
[2017-11-22] MEDS ORDERED: TAMS5CAP PO (07:22)
--- NOTE | 2017-11-22 07:23 | HHI.DCPOC ---
Discharge Care Plan Diagnosis: (1) Acute kidney injury (2) Nephrolithiasis Goals to Promote Your Health * To prevent worsening of your condition and complications * To maintain your health at the optimal level Directions to Meet Your Goals Take your medications as prescribed Follow your dietary instruction Follow activity as directed Keep your appointments as scheduled Take your immunizations and boosters as scheduled If your symptoms worsen call your PCP, if no PCP go to Urgent Care Center or Emergency Room Smoking is Dangerous to Your Health. Avoid second hand smoke Call the 24-hour hour crisis hotline for domestic abuse at Bruce Cesar November 22, 2017 07:22
[2017-11-22 07:55] VITALS: BP 136/84; PULSE 71; RESP 18; TEMP 98.4; O2SAT 98
[2017-11-22] MEDS: SODIUM CHLORIDE 0.9% FLUSH 10 ML FLUSH IV FLUSH SCH (08:33)
[2017-11-22] MEDS ORDERED: PANTOPRAZOLE SOD 40 MG DELAYED RELEASE TAB PO SCH (09:00)
[2017-11-22] MEDS ORDERED: TRAM50TA PO (09:10)
--- NOTE | 2017-11-22 09:12 | HHI.PR ---
Subjective Remarks Follow-up nephrolithiasis November 22, 2017-patient seen and examined, reports improvement of flank pain. Renal indices improving. No acute event overnight. Currently afebrile. Objective Vitals Vital Signs Date Time Temp Pulse Resp B/P (MAP) Pulse Ox O2 Delivery O2 Flow Rate FiO2 11/22/17 07:55 98.4 71 18 136/84 (101) 98 11/22/17 00:00 97.6 62 20 130/78 (95) 98 11/21/17 20:00 98.8 69 20 127/73 (91) 97 11/21/17 18:53 18 11/21/17 16:38 18 11/21/17 16:00 99.7 78 17 125/77 (93) 96 11/21/17 12:00 98.3 76 15 130/67 (88) 97 11/21/17 10:00 I/O 11/21/17 11/21/17 11/21/17 11/22/17 11/22/17 11/22/17 07:00 15:00 23:00 07:00 15:00 23:00 Intake Total 1000 ml 3748 ml 1872 ml Output Total 800 ml Balance 200 ml 3748 ml 1872 ml Intake Oral 1320 ml 480 ml IV Total 1000 ml 2428 ml 1392 ml Output Urine Total 800 ml # Voids 6 8 # Bowel Movements 0 Result Diagram: 11/21/17 0700 11/22/17 0629 Imaging Last Impressions Abdomen/Pelvis CT 11/21/17 0704 Signed Impressions: CONCLUSION: 1. The previously noted 3 mm left proximal ureteral calculus is now positioned at the left UVJ just inside the urinary bladder. There continues to be some mi ld hydronephrosis of the left collecting system. 2. No change in the bilateral multiple nonobstructing renal calculi. Objective Remarks GENERAL: NAD SKIN: Warm and dry. HEAD: Normocephalic. EYES: No scleral icterus. No injection or drainage. NECK: Supple, trachea midline. No JVD or lymphadenopathy. CARDIOVASCULAR: Regular rate and rhythm without murmurs, gallops, or rubs. RESPIRATORY: Breath sounds equal bilaterally. No accessory muscle use. GASTROINTESTINAL: Abdomen soft, non-tender, nondistended. MUSCULOSKELETAL: No cyanosis, or edema. BACK: Nontender without obvious deformity. No CVA tenderness. A/P Problem List: (1) Nephrolithiasis ICD Code: N20.0 - Calculus of kidney Status: Acute (2) Intractable pain ICD Code: R52 - Pain, unspecified Status: Acute (3) Acute kidney injury ICD Code: N17.9 - Acute kidney failure, unspecified Status: Acute Assessment and Plan 47-year-old man with Renal lithiasis -CT scan does indicate that the ureteral calculus is moving down the collecting system and is now located at the left UVJ just inside the urinary bladder -Continue pain control with Toradol and continue with IV fluid hydration and Flomax -Appreciate input from urology, who recommended conservative management Acute kidney injury -Secondary to obstructive uropathy from renal lithiasis -Renal indices improving with IV fluids -Monitor renal function DVT prevention -Low risk, early ambulation Discharge Planning Discharge patient to home Condition on discharge: Improved Regular Diet as tolerated Ad Natalee activity Rx written: See EMR Follow-up with primary care physician in 1 week Follow-up with urology in 1-2 weeks Yonathan Paez MD November 22, 2017 09:12
== END 2017-11-22 10:44 | disposition home or self-care (01) ==
LOC: PHED 06:18 → PHEDA 08:32 → PH3B 10:05
PROVIDERS: ADMIT Hospitalist; ATTEND Hospitalist
DX: N17.9 Acute kidney failure, unspecified (principal); N13.2 Hydronephrosis with renal and ureteral calculous obstruction; F17.210 Nicotine dependence, cigarettes, uncomplicated
CPT/HCPCS: 74176; 80048; 81001; 82310; 83970; 84550; 85025; 96361; 96365; 96366; 96367; 96375; G0378; J1170; J1200; J1885; J7030